=== PATIENT | female | born 1950 | race Caucasian/White ===

== ENCOUNTER 2018-12-04 03:14 | Observation (INO) ==
[2018-12-04] MEDS ORDERED: Naloxone 0.4 MG/ML INJ IVP PRN (05:45)
[2018-12-04] MEDS ORDERED: Ondansetron 4 MG/2 ML VIAL IVP PRN (05:45)
[2018-12-04 06:20] LABS: Basophils # 0.1 K/mcL (0.0-0.2); Basophils % 0.3 %; Eosinophils # 0.1 K/mcL (0.0-0.6); Eosinophils % 0.6 %; Hemoglobin 12.4 g/dL (11.5-15.4); Immature Granulocytes % 0.4 % (0-4); Lymphocytes # 3.2 K/mcL (0.6-4.6); Lymphocytes % 22.2 %; Mean Corpuscular HGB Conc 31.8 g/dL (31.6-35.5); Mean Corpuscular Hemoglobin 27.7 pg (28.0-33.3); Mean Corpuscular Volume 87.2 fL (83.0-100.0); Mean Platelet Volume 9.8 fL (9.4-12.4); Monocytes # 0.7 K/mcL (0.0-1.3); Monocytes % 4.6 %; Neutrophils # 10.4 K/mcL (1.6-8.9); Platelet Count 235 K/mcL (140-400); Red Blood Count 4.47 M/mcL (3.82-4.97); Red Cell Distribution Width 14.8 % (11.5-14.5); Segmented Neutrophils % 71.9 %; White Blood Count 14.5 K/mcL (4.3-11.1)
[2018-12-04 06:27] LABS: Prothrombin Time 11.1 Seconds (9.4-12.1)
[2018-12-04] MEDS: 0.9 % Sodium Chloride 1,000 ML IVC SCH ×2 (06:28→20:18)
[2018-12-04 06:30] LABS: Activated Partial Thrombo Time 26.3 Seconds (26.0-36.0)
[2018-12-04 06:39] LABS: Albumin 3.3 g/dL (3.5-5.7); Albumin/Globulin Ratio 1.2 (1.1-2.2); Bilirubin,Total 0.3 mg/dL (0.3-1.0); Calcium 8.5 mg/dL (8.6-10.3); Globulin 2.8 g/dL (2.4-3.5); Potassium 4.1 mEq/L (3.5-5.1); Total Protein 6.1 g/dL (6.4-8.9)
--- NOTE | 2018-12-04 07:35 | Internal Med History&Physical ---
Date of Encounter: 12/04/18 Time of Encounter: 07:35 Internal Medicine - H&P: HPI History of present illness: Ms. Steinberg is a 68 year old female with history of type 2 DM and tobacco abuse presents as a transfer from [facility] for left flank pain and obstructive uropathy. Patient has had left flank pain and went to ED. A CT abdomen/pelvis showed severe left hydronephrosis and hydroureter without any visible stone. There was also noted to be a 6-7 mm stone in the distal right ureter. She had urinalysis consistent with UTI. Her creatinine was 1.77 with no available baseline lab currently. She was administerd 1 L normal saline, 4 mg morphine, Zofran, and Cipro. She denies fevers, admits to chills. Pain rated 10/10, started last night and is more of a constant, sharp pain. Past Med Surg Social Fam HX - Past Medical History Medical history: diabetes Psychiatric history: anxiety, depression - Past Surgical History Surgical History: appendectomy, knee replacement - Social History Smoking Status: Current every day smoker Packs per day: 1/2 Smokeless Tobacco Status: No Alcohol use: none Drug use: none - Family History Father Living Status: Hx Family Cardiac Disorders: Yes Hx Family Cancer: Yes Brother Living Status: Hx Family Cardiac Disorders: Yes Internal Medicine - H&P: Meds Allergy/AdvReac Type Severity Reaction Status Date / Time meloxicam [From Mobic] Allergy See Verified 12/04/18 05:25 Comments tramadol Allergy Vomiting Verified 12/04/18 05:23 Penicillins AdvReac Difficulty Verified 12/04/18 05:22 Breathing All Systems PM: A 10-system review of systems was performed and is negative for pertinent findings except as documented above in the HPI. - Constitutional Constitutional: chills - EENT Eyes: no change in vision, no discharge, no pain, no photophobia Ears: no ear discharge, no ear pain, no tinnitus Nose, mouth and throat: no dysphagia, no nasal discharge, no neck pain, no sore throat - Cardiovascular Cardiovascular ROS IM: no chest pain, no diaphoresis, no dyspnea, no lightheadedness, no palpitations, no syncope - Respiratory Respiratory: no cough, no dyspnea, no wheezing, no excessive phlegm production - Gastrointestinal Gastrointestinal: no abdominal pain, no diarrhea, no hematemesis, no hematochezia, no melena, no nausea, no vomiting - Genitourinary Genitourinary: dysuria, flank pain, no change in urinary stream, no hematuria - Musculoskeletal Musculoskeletal ROS IM: no numbness, no tingling - Integumentary Integumentary IM: no rash, no unusual bruising - Neurological Neurological ROS: no confusion, no convulsions, no focal weakness, no numbness, no tingling, no tremor(s) - Hematologic/Lymphatic Hematologic/Lymphatic: no easy bruising - Constitutional Vitals: Temp Pulse Resp BP Pulse Ox 97.8 F 83 16 122/73 96 12/04/18 06:30 12/04/18 06:30 12/04/18 06:30 12/04/18 06:30 12/04/18 06:30 General appearance: Present: A&O X 3 Exam: . - Head Head exam: Present: atraumatic, normocephalic - Eye Eye exam: Present: PERRL, conjuntiva pink, sclera anicteric Pupils: Present: PERRL - Neck Neck exam general surgery: Present: supple, trachea midline. Absent: lymphadenopathy - Respiratory Respiratory exam: Present: CTAB. Absent: accessory muscle use, rales, rhonchi, wheezes - Cardiovascular Cardiovascular exam: Present: RRR, +S1, +S2. Absent: diastolic murmur, gallop, rubs, systolic murmur - GI/Abdominal GI/Abdominal exam: Present: normal bowel sounds, soft, tenderness, no peritoneal signs. Absent: distended Additional comments: left flank pain - Extremities Exam Extremities exam: Present: warm, radial pulses palpable and symmetrical. Absent: calf tenderness, cyanotic, pedal edema - Neurological Exam Neurological exam: Present: CN II-XII intact, oriented X3, no focal deficits. Absent: pronater drift, facial droop, speech deficit - Skin Skin exam: Present: dry, intact Internal Med - H&P Results - Labs CBC & Chem 7: 12/04/18 05:59 12/04/18 05:59 Labs: Short CBC 12/04/18 Range/Units 05:59 WBC 14.5 H (4.3-11.1) K/mcL Hgb 12.4 (11.5-15.4) g/dL Hct 39.0 (35.3-44.9) % Plt Count 235 (140-400) K/mcL Neutrophils # 10.4 H (1.6-8.9) K/mcL BMP 12/04/18 05:59 Sodium 137 Potassium 4.1 Chloride 104 Carbon Dioxide 24 BUN 20 Creatinine 1.52 H Glucose 218 H Calcium 8.5 L Liver Function 12/04/18 Range/Units 05:59 Total Bilirubin 0.3 (0.3-1.0) mg/dL AST 14 (13-39) Units/L ALT 15 (7-52) Units/L Alkaline Phosphatase 94 (34-104) Units/L Albumin 3.3 L (3.5-5.7) g/dL - Assessment and Plan (1) Hydronephrosis, left Current Visit: Yes Status: Acute Assessment and plan: CT at outside ED showed severe left hydronephrosis and hydroureter. Patient has findings of UTI, given a dose of Cipro and IV fluids. Currently no signs of sepsis. Allergic to penicillin with hives and swelling so will avoid cephalosporins. Renally dose Cipro. Received dose in ED, will schedule for l ater today as starting dose. Urology consulted, recommendations appreciated NPO at midnight Oxycodone, Zofran prn pain and nausea (2) Right kidney stone Current Visit: Yes Status: Acute Assessment and plan: Plan as above. (3) Type 2 diabetes mellitus Current Visit: Yes Status: Acute Assessment and plan: Diabetic diet ISS Qualifiers: Diabetes mellitus chcf insulin use: with terminal computer operator use Diabetes mellitus complication status: without complication Qualified Code(s): E11.9 - Type 2 diabetes mellitus without complications; Z79.4 - extermination inspector (current) use of insulin (4) Tobacco abuse Current Visit: Yes Status: Acute Assessment and plan: Nicotine patch (5) Acute kidney injury Current Visit: Yes Status: Acute Assessment and plan: Unsure of patient's baseline renal function. Likely related to obstructive uropathy. Urology consulted, continue IV fluid hydration, recheck BMP in AM. (6) UTI (urinary tract infection) Current Visit: Yes Status: Acute Assessment and plan: As above, await culture. Qualifiers: Urinary tract infection type: acute cystitis Hematuria presence: with hematuria Qualified Code(s): N30.01 - Acute cystitis with hematuria (7) COPD (chronic obstructive pulmonary disease) Current Visit: Yes Status: Acute Assessment and plan: No acute issues, place Duo Neb prn dyspnea. Qualifiers: COPD type: unspecified COPD Qualified Code(s): J44.9 - Chronic obstructive pulmonary disease, unspecified (8) DVT prophylaxis Current Visit: Yes Status: Acute Assessment and plan: SQ heparin - Time Spent With Patient Total time spent is greater than 50% in coordination of care (as documented) at patient's floor/unit and/or counseling patient:
[2018-12-04] MEDS ORDERED: *HR* Dextrose 50 % in Water (Syg) 50 ML SYRINGE IVP PRN (07:43)
[2018-12-04] MEDS ORDERED: Dextrose Gel 15 GM/37.5 ML TUBE PO PRN ×2 (07:43)
[2018-12-04] MEDS ORDERED: D5% in Water 1,000 ML IVC PRN (07:43)
[2018-12-04] MEDS ORDERED: Ipratropium/Albuterol Neb 3 ML IH PRN (08:01)
[2018-12-04] MEDS ORDERED: Nicotine 14 MG PATCH.TD24 TD PRN (08:01)
[2018-12-04] MEDS: *HR* Heparin 5,000 UNIT/ML VIAL SQ SCH ×2 (09:06→17:08)
--- NOTE | 2018-12-04 09:22 | Urology - Consult Note ---
<Kaur Bellamy N - Last Filed: 12/04/18 09:19> Date of Encounter: 12/04/18 Time of Encounter: 08:30 - Assessment and Plan (1) Acute kidney injury Current Visit: Yes Status: Acute Assessment and plan: Patient is a 68 year female who presents with acute kidney injury. Unfortunately, there is no baseline renal function for comparison. Patient has a history of acute renal failure secondary to NSAIDs. We will reevaluate renal function in the morning and possibly proceed with ureteral stent placement if indicated. (2) Hydronephrosis, left Current Visit: Yes Status: Acute Assessment and plan: Patient is a 68-year-old female who presents with left hydronephrosis. Reviewed CT images, and we do not feel patient has a right ureteral stone. Patient likely has an ascending urinary tract infection. We discussed the option of proceeding with left ureteral stent placement given the hydronephrosis, left flank pain and infection. Patient has elected to continue with conservative treatment with IV fluids and antibiotics. We discussed that if patient's renal function acutely worsens or fails to improve, we may proceed with ureteral stent placement tomorrow. (3) UTI (urinary tract infection) Current Visit: Yes Status: Acute Assessment and plan: Patient is a 68-year-old female who presents with a urinary tract infection. White blood cell count is 14.5, and GFR is 34. There has been no urine culture collected, and patient is receiving IV Cipro. I will call [facility] lab tomorrow to inquire about urine culture. Qualifiers: Urinary tract infection type: acute cystitis Hematuria presence: with hematuria Qualified Code(s): N30.01 - Acute cystitis with hematuria Urology CN:HPI Consult date: 12/04/18 Reason for consult Urology: Hydronephrosis (UTI; left pyelonephritis) Requesting physician: Victorina Zamorano History of present illness: Patient is a 68-year-old female who presents with left pyelonephritis, hydronephrosis and left flank pain. Patient was initially evaluated at [facility] where she underwent a CT of the abdomen and pelvis revealing moderate to severe left hydronephrosis, moderate right hydronephrosis and obstructive uropathy. Patient was subsequently transferred to [facility] for urologic intervention. Patient reports no prior history of renal stones, but she does admit to a family history of renal stones through both of her siblings. Patient states left flank pain has been ongoing for one day, and it is accompanied with nausea, suprapubic pain, gross hematuria and dysuria. 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 Patient denies any history of recurrent urinary tract infection or recent hospitalization for urinary tract infection. Currently, patient is lying in bed in no apparent distress, but she admits to continued left flank pain. She denies any fever or chills. Past Med Surg Social Fam HX - Past Medical History Medical history: diabetes Psychiatric history: anxiety, depression - Past Surgical History Surgical History: appendectomy, knee replacement - Social History Smoking Status: Current every day smoker Packs per day: 1/2 Smokeless Tobacco Status: No Alcohol use: none Drug use: none - Family History Father Living Status: Hx Family Cardiac Disorders: Yes Hx Family Cancer: Yes Brother Living Status: Hx Family Cardiac Disorders: Yes Medications and Allergies Allergy/AdvReac Type Severity Reaction Status Date / Time meloxicam [From Mobic] Allergy See Verified 12/04/18 05:25 Comments tramadol Allergy Vomiting Verified 12/04/18 05:23 Penicillins AdvReac Difficulty Verified 12/04/18 05:22 Breathing Review of Systems - Constitutional no chills, no fatigue, no fever(s) - EENT Nose, mouth and throat: no dizziness, no headache(s) - Cardiovascular no chest pain, no diaphoresis, no dyspnea - Respiratory no cough, no dyspnea - Gastrointestinal abdominal pain, nausea, no vomiting - Genitourinary Genitourinary: dysuria, flank pain, hematuria, urinary frequency, urinary hesit kavon, urinary urgency, no difficulty urinating, no urinary incontinence - Musculoskeletal back pain, no muscle weakness - Integumentary no erythema - Neurological no confusion, no syncope - Psychiatric no anxiety, no confusion - Hematologic/Lymphatic no easy bleeding, no easy bruising - Allergic/Immunologic no throat swelling, no wheezing Exam Initial Vital Signs Temp Pulse Resp BP Pulse Ox 98.3 F 89 16 145/82 94 12/04/18 05:06 12/04/18 05:06 12/04/18 05:06 12/04/18 05:06 12/04/18 05:06 - General physical appearance Present: no distress, no pain - Eyes Present: PERRL, normal ocular movement - ENT Present: normal nares, no hearing loss, no congestion - Neck Present: no masses, trachea midline, no lymphadenopathy - Respiratory Present: normal respiratory effort - Cardiovascular Cardiovascular exam IM: RRR - Abdomen Abdomen: Present: soft, non tender. Absent: distended - Genitourinary Present: other (left cvat) - Integumentary Present: no rash, no abnormal pigmentation - Neurologic Present: normal coordination - Musculoskeletal Present: other (normal posture ) Urology Results - Labs 12/04/18 05:59 12/04/18 05:59 Abnormal lab results WBC 14.5 K/mcL (4.3-11.1) H 12/04/18 05:59 MCH 27.7 pg (28.0-33.3) L 12/04/18 05:59 RDW 14.8 % (11.5-14.5) H 12/04/18 05:59 Neutrophils # 10.4 K/mcL (1.6-8.9) H 12/04/18 05:59 Creatinine 1.52 mg/dL (0.60-1.20) H 12/04/18 05:59 Est GFR ( Amer) 41 (> 60) L 12/04/18 05:59 Est GFR (Non-Af Amer) 34 (> 60) L 12/04/18 05:59 Glucose 218 mg/dL (70-105) H 12/04/18 05:59 Calcium 8.5 mg/dL (8.6-10.3) L 12/04/18 05:59 Serum Total Protein 6.1 g/dL (6.4-8.9) L 12/04/18 05:59 Albumin 3.3 g/dL (3.5-5.7) L 12/04/18 05:59 Diabetes panel 12/04/18 Range/Units 05:59 Sodium 137 (136-145) mEq/L Potassium 4.1 (3.5-5.1) mEq/L Chloride 104 (98-107) mEq/L Carbon Dioxide 24 (23-29) mEq/L BUN 20 (8-23) mg/dL Creatinine 1.52 H (0.60-1.20) mg/dL Glucose 218 H (70-105) mg/dL Calcium 8.5 L (8.6-10.3) mg/dL AST 14 (13-39) Units/L ALT 15 (7-52) Units/L Alkaline Phosphatase 94 (34-104) Units/L Albumin 3.3 L (3.5-5.7) g/dL Calcium panel 12/04/18 Range/Units 05:59 Calcium 8.5 L (8.6-10.3) mg/dL Albumin 3.3 L (3.5-5.7) g/dL Pituitary panel 12/04/18 Range/Units 05:59 Sodium 137 (136-145) mEq/L Potassium 4.1 (3.5-5.1) mEq/L Chloride 104 (98-107) mEq/L Carbon Dioxide 24 (23-29) mEq/L BUN 20 (8-23) mg/dL Creatinine 1.52 H (0.60-1.20) mg/dL Glucose 218 H (70-105) mg/dL Calcium 8.5 L (8.6-10.3) mg/dL Adrenal panel 12/04/18 Range/Units 05:59 Sodium 137 (136-145) mEq/L Potassium 4.1 (3.5-5.1) mEq/L Chloride 104 (98-107) mEq/L Carbon Dioxide 24 (23-29) mEq/L BUN 20 (8-23) mg/dL Creatinine 1.52 H (0.60-1.20) mg/dL Glucose 218 H (70-105) mg/dL Calcium 8.5 L (8.6-10.3) mg/dL Total Bilirubin 0.3 (0.3-1.0) mg/dL AST 14 (13-39) Units/L ALT 15 (7-52) Units/L Alkaline Phosphatase 94 (34-104) Units/L Albumin 3.3 L (3.5-5.7) g/dL All other labs normal. - Imaging CT scan - abdomen: report reviewed, image reviewed CT scan - pelvis: report reviewed, image reviewed Consult Discharge Plan - Plan Referrals: Bebe Argueta, FILM PRODUCER [Primary Care Provider] - <Giovany Jones - Last Filed: 12/04/18 14:54> Date of Encounter: 12/04/18 Urology CN:HPI History of present illness: Patient was seen and examined independently. I agree with the plan as written by kaur Bellamy. At this time, patient does not have a right ureteral stone. This was confirmed on personal review of the CT scan. She has left moderate to severe hydronephrosis on her left side which is consistent with infection and pyelonephritis. At this time I offered the patient cystoscopy and left ureteral stent placement today but she declined. We will plan on close monitoring. Patient will likely have improvement with IV antibiotics. We will follow along closely. If patient's infection fails to improve or her serum creatinine fails to improve will consider left ureteral stent placement Exam Initial Vital Signs Temp Pulse Resp BP Pulse Ox 98.3 F 89 16 145/82 94 12/04/18 05:06 12/04/18 05:06 12/04/18 05:06 12/04/18 05:06 12/04/18 05:06 Urology Results - Labs 12/04/18 05:59 12/04/18 05:59 Abnormal lab results WBC 14.5 K/mcL (4.3-11.1) H 12/04/18 05:59 MCH 27.7 pg (28.0-33.3) L 12/04/18 05:59 RDW 14.8 % (11.5-14.5) H 12/04/18 05:59 Neutrophils # 10.4 K/mcL (1.6-8.9) H 12/04/18 05:59 Creatinine 1.52 mg/dL (0.60-1.20) H 12/04/18 05:59 Est GFR ( Amer) 41 (> 60) L 12/04/18 05:59 Est GFR (Non-Af Amer) 34 (> 60) L 12/04/18 05:59 Glucose 218 mg/dL (70-105) H 12/04/18 05:59 Calcium 8.5 mg/dL (8.6-10.3) L 12/04/18 05:59 Serum Total Protein 6.1 g/dL (6.4-8.9) L 12/04/18 05:59 Albumin 3.3 g/dL (3.5-5.7) L 12/04/18 05:59 Diabetes panel 12/04/18 Range/Units 05:59 Sodium 137 (136-145) mEq/L Potassium 4.1 (3.5-5.1) mEq/L Chloride 104 (98-107) mEq/L Carbon Dioxide 24 (23-29) mEq/L BUN 20 (8-23) mg/dL Creatinine 1.52 H (0.60-1.20) mg/dL Glucose 218 H (70-105) mg/dL Calcium 8.5 L (8.6-10.3) mg/dL AST 14 (13-39) Units/L ALT 15 (7-52) Units/L Alkaline Phosphatase 94 (34-104) Units/L Albumin 3.3 L (3.5-5.7) g/dL Calcium panel 12/04/18 Range/Units 05:59 Calcium 8.5 L (8.6-10.3) mg/dL Albumin 3.3 L (3.5-5.7) g/dL Pituitary panel 12/04/18 Range/Units 05:59 Sodium 137 (136-145) mEq/L Potassium 4.1 (3.5-5.1) mEq/L Chloride 104 (98-107) mEq/L Carbon Dioxide 24 (23-29) mEq/L BUN 20 (8-23) mg/dL Creatinine 1.52 H (0.60-1.20) mg/dL Glucose 218 H (70-105) mg/dL Calcium 8.5 L (8.6-10.3) mg/dL Adrenal panel 12/04/18 Range/Units 05:59 Sodium 137 (136-145) mEq/L Potassium 4.1 (3.5-5.1) mEq/L Chloride 104 (98-107) mEq/L Carbon Dioxide 24 (23-29) mEq/L BUN 20 (8-23) mg/dL Creatinine 1.52 H (0.60-1.20) mg/dL Glucose 218 H (70-105) mg/dL Calcium 8.5 L (8.6-10.3) mg/dL Total Bilirubin 0.3 (0.3-1.0) mg/dL AST 14 (13-39) Units/L ALT 15 (7-52) Units/L Alkaline Phosphatase 94 (34-104) Units/L Albumin 3.3 L (3.5-5.7) g/dL All other labs normal.
[2018-12-04] MEDS: Insulin LISPRO 300 UNITS/3 ML VIAL SQ SCH ×3 (12:37→20:08)
[2018-12-04 19:23] LABS: Bilirubin,Urine Negative (Negative); Blood,Urine Moderate (Negative); Clarity,Urine Clear (Clear); Color,Urine Yellow (Yellow); Glucose,Urine (UA) Normal (Normal); Ketones,Urine Negative (Negative); Leukocyte Esterase,Urine Large (Negative); Nitrite,Urine Negative (Negative); PH,Urine 6.5 pH Units (5.0-8.0); Protein,Urine Trace mg/dL (Neg-Trace); Specific Gravity,Urine < 1.005 (1.010-1.025); Urobilinogen,Urine Normal (Normal)
[2018-12-04 19:25] LABS: Bacteria,Urine Few per hpf (None-Few); Hyaline Casts,Urine None Seen per lpf (None-Few); RBC,Urine 0-3 per hpf (0-3); Squamous Epithelial Cell,Urine Moderate per lpf (None-Few); WBC,Urine 50-100 per hpf (0-3)
[2018-12-05] MEDS: *HR* Heparin 5,000 UNIT/ML VIAL SQ SCH ×2 (05:42→17:39)
[2018-12-05] MEDS: Insulin LISPRO 300 UNITS/3 ML VIAL SQ SCH ×4 (07:18→21:01)
[2018-12-05 07:24] LABS: Calcium 8.6 mg/dL (8.6-10.3); Potassium 4.2 mEq/L (3.5-5.1)
--- NOTE | 2018-12-05 08:57 | Urology Progress Note ---
<Kaur Bellamy N - Last Filed: 12/05/18 08:54> Date of Encounter: 12/05/18 Time of Encounter: 08:10 - Assessment and Plan (1) Acute kidney injury Current Visit: Yes Status: Acute Assessment and plan: Patient is a 68-year-old female who presents with acute kidney injury. Serum creatinine is elevated from 1.52-1.91, however, patient appears much improved clinically. (2) Hydronephrosis, left Current Visit: Yes Status: Acute Assessment and plan: Patient is a 68-year-old female who presents with moderate to severe left-sided hydronephrosis and pyelonephritis. Vital signs are currently stable and afebrile. Renal function is slightly worsened, the patient appears much improved clinically. At this time, patient does not wish to proceed with ureteral stent placement, as she feels much improved. Urology will sign off, we are always available as needed. Patient will require outpatient follow-up with renal ultrasound within 2 weeks of discharge. (3) UTI (urinary tract infection) Current Visit: Yes Status: Acute Assessment and plan: Patient is a 68-year-old female who presents with an ascending urinary tract infection. Vital signs are currently stable and afebrile. Patient is receiving IV Cipro, and final culture is pending. Patient will require an additional 10- 14 days of oral culture sensitive antibiotics upon discharge. Qualifiers: Urinary tract infection type: acute cystitis Hematuria presence: with hematuria Qualified Code(s): N30.01 - Acute cystitis with hematuria Progress Note Subjective: no new complaints, feels better Narrative: Patient seen and examined lying in bed in no apparent distress. Patient reports feeling much better. Patient states she is voiding well without difficulty, and her appetite has returned. Patient denies any fever, chills, flank pain, dysuria or gross hematuria. Objective Initial Vital Signs Temp Pulse Resp BP Pulse Ox 98.3 F 89 16 145/82 94 12/04/18 05:06 12/04/18 05:06 12/04/18 05:06 12/04/18 05:06 12/04/18 05:06 - General physical appearance Present: no distress, no pain - Respiratory Present: normal expansion, normal respiratory effort - Abdomen Present: soft, non tender. Absent: distended - Genitourinary Present: other (No CVAT) - Integumentary Present: no rash, no abnormal pigmentation - Musculoskeletal Present: normal posture - Psychiatric Present: oriented to time, oriented to person, oriented to place, speech is normal, memory intact - Labs 12/04/18 05:59 12/05/18 05:30 Diabetes panel 12/05/18 Range/Units 05:30 Sodium 138 (136-145) mEq/L Potassium 4.2 (3.5-5.1) mEq/L Chloride 108 H (98-107) mEq/L Carbon Dioxide 24 (23-29) mEq/L BUN 19 (8-23) mg/dL Creatinine 1.91 H (0.60-1.20) mg/dL Glucose 170 H (70-105) mg/dL Calcium 8.6 (8.6-10.3) mg/dL Calcium panel 12/05/18 Range/Units 05:30 Calcium 8.6 (8.6-10.3) mg/dL Pituitary panel 12/05/18 Range/Units 05:30 Sodium 138 (136-145) mEq/L Potassium 4.2 (3.5-5.1) mEq/L Chloride 108 H (98-107) mEq/L Carbon Dioxide 24 (23-29) mEq/L BUN 19 (8-23) mg/dL Creatinine 1.91 H (0.60-1.20) mg/dL Glucose 170 H (70-105) mg/dL Calcium 8.6 (8.6-10.3) mg/dL Adrenal panel 12/05/18 Range/Units 05:30 Sodium 138 (136-145) mEq/L Potassium 4.2 (3.5-5.1) mEq/L Chloride 108 H (98-107) mEq/L Carbon Dioxide 24 (23-29) mEq/L BUN 19 (8-23) mg/dL Creatinine 1.91 H (0.60-1.20) mg/dL Glucose 170 H (70-105) mg/dL Calcium 8.6 (8.6-10.3) mg/dL Consult Discharge Plan - Plan Referrals: Giovany Jones MD [Partnered Physician] - Bebe Argueta CNP [Primary Care Provider] - <Giovany Jones - Last Filed: 12/05/18 11:23> Date of Encounter: 12/05/18 Progress Note Narrative: Patient was seen and examined independently. Agree with the plan as written by Kaur Bellamy at this point patient okay to discharge home from urology standpoint as patient's creatinine has improved. She is feeling much better. Patient should follow up with us in 2-3 weeks for renal ultrasound. Objective Initial Vital Signs Temp Pulse Resp BP Pulse Ox 98.3 F 89 16 145/82 94 12/04/18 05:06 12/04/18 05:06 12/04/18 05:06 12/04/18 05:06 12/04/18 05:06 - Labs 12/04/18 05:59 12/05/18 05:30 Diabetes panel 12/05/18 Range/Units 05:30 Sodium 138 (136-145) mEq/L Potassium 4.2 (3.5-5.1) mEq/L Chloride 108 H (98-107) mEq/L Carbon Dioxide 24 (23-29) mEq/L BUN 19 (8-23) mg/dL Creatinine 1.91 H (0.60-1.20) mg/dL Glucose 170 H (70-105) mg/dL Calcium 8.6 (8.6-10.3) mg/dL Calcium panel 12/05/18 Range/Units 05:30 Calcium 8.6 (8.6-10.3) mg/dL Pituitary panel 12/05/18 Range/Units 05:30 Sodium 138 (136-145) mEq/L Potassium 4.2 (3.5-5.1) mEq/L Chloride 108 H (98-107) mEq/L Carbon Dioxide 24 (23-29) mEq/L BUN 19 (8-23) mg/dL Creatinine 1.91 H (0.60-1.20) mg/dL Glucose 170 H (70-105) mg/dL Calcium 8.6 (8.6-10.3) mg/dL Adrenal panel 12/05/18 Range/Units 05:30 Sodium 138 (136-145) mEq/L Potassium 4.2 (3.5-5.1) mEq/L Chloride 108 H (98-107) mEq/L Carbon Dioxide 24 (23-29) mEq/L BUN 19 (8-23) mg/dL Creatinine 1.91 H (0.60-1.20) mg/dL Glucose 170 H (70-105) mg/dL Calcium 8.6 (8.6-10.3) mg/dL
--- NOTE | 2018-12-05 16:12 | Internal Med Progress Note ---
Hospitalist Progress Note - Encounter Date of Encounter: 12/05/18 Time of Encounter: 09:00 - Subjective Interval History: No acute events overnight. Patient has no new complaints. She denies flank pain, fever, dysuria and chills. - Exam Vitals: Temp Pulse Resp BP Pulse Ox 36.8 C 74 15 111/70 93 12/05/18 14:31 12/05/18 14:31 12/05/18 14:31 12/05/18 14:31 12/05/18 14:31 Exam: GENERAL: Not in distress. Alert and Oriented HEENT: EOMI, PERRLA MOUTH: Good oral hygiene NECK:No JVD, No lymph nodes. CHEST AND LUNGS: Normal breath sounds, no wheezes or crackles HEART: S1 and S2 normal, no murmurs ABDOMEN: Soft, nontender, no organomegaly SKIN: Normal color, no rahses, no lesions EXTREMITIES: No deformity, no edema, no tenderness, no joint swelling or clubbing NEUROLOGICAL: Normal cognition, normal motor and sensory exam. . - Assessment and Plan (1) Hydronephrosis, left Current Visit: Yes Status: Acute Assessment and Plan: Urology on board. Do not intend to place a ureteral stent at the moment Recommend outpatient follow-up with renal US within 2 weeks of DC For possible DC tomorrow. (2) Type 2 diabetes mellitus Current Visit: Yes Status: Acute Assessment and Plan: Diabetic diet ISS (3) Tobacco abuse Current Visit: Yes Status: Acute Assessment and Plan: Nicotine patch Patient counseled on smoking cessation (4) DVT prophylaxis Current Visit: Yes Status: Acute Assessment and Plan: SQ heparin (5) Acute kidney injury Current Visit: Yes Status: Acute Assessment and Plan: Creatinine at 1.9, a trend upwards from 1.5 yesterday. Will continue to hydrate and monitor. (6) UTI (urinary tract infection) Current Visit: Yes Status: Acute Assessment and Plan: Awaiting culture results. Patient on IV Cipro. (7) COPD (chronic obstructive pulmonary disease) Current Visit: Yes Status: Acute Assessment and Plan: No acute issues, place Duo Neb prn dyspnea. DVT Prophylaxis: SQ Heparin - Time Spent with Patient Total time spent is greater than 50% in coordination of care (as documented) at patient's floor/unit and/or counseling patient: Internal Medicine: Result - Labs CBC & Chem 7: 12/04/18 05:59 12/05/18 05:30 Labs: BMP 12/05/18 05:30 Sodium 138 Potassium 4.2 Chloride 108 H Carbon Dioxide 24 BUN 19 Creatinine 1.91 H Glucose 170 H Calcium 8.6 Urine 12/04/18 Range/Units 19:03 Urine Color Yellow (Yellow) Urine Clarity Clear (Clear) Urine pH 6.5 (5.0-8.0) pH Units Ur Specific [place] < 1.005 L (1.010-1.025) Urine Protein Trace (Neg-Trace) mg/dL Urine Glucose (UA) Normal (Normal) mg/dL - ABG Interpretation ABG results: PT/INR, D-dimer PT 11.1 Seconds (9.4-12.1) 12/04/18 05:59 Consult Discharge Plan - Plan Referrals: Giovany Jones MD [Partnered Physician] - Bebe Argueta CNP [Primary Care Provider] - (2) Type 2 diabetes mellitus Qualifiers: 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
[2018-12-06 04:44] LABS: Basophils % 0.5 %; Eosinophils # 0.2 K/mcL (0.0-0.6); Eosinophils % 2.2 %; Hematocrit 34.7 % (35.3-44.9); Immature Granulocytes % 0.2 % (0-4); Lymphocytes # 3.8 K/mcL (0.6-4.6); Mean Corpuscular HGB Conc 31.7 g/dL (31.6-35.5); Mean Corpuscular Hemoglobin 27.6 pg (28.0-33.3); Mean Platelet Volume 10.1 fL (9.4-12.4); Monocytes # 0.6 K/mcL (0.0-1.3); Neutrophils # 4.2 K/mcL (1.6-8.9); Platelet Count 225 K/mcL (140-400); Red Blood Count 3.99 M/mcL (3.82-4.97); Red Cell Distribution Width 14.6 % (11.5-14.5); Segmented Neutrophils % 47.1 %; White Blood Count 8.8 K/mcL (4.3-11.1)
[2018-12-06 05:05] LABS: Potassium 3.8 mEq/L (3.5-5.1)
[2018-12-06] MEDS: *HR* Heparin 5,000 UNIT/ML VIAL SQ SCH (05:16)
[2018-12-06] MEDS: Insulin LISPRO 300 UNITS/3 ML VIAL SQ SCH (07:15)
--- NOTE | 2018-12-06 09:06 | Discharge Summary ---
- NOTES TO OUTPATIENT PROVIDER Notes to Outpatient Provider: Patient to do a repeat renal ultrasoud and follow up with uroloygy within 2 weeks. Orders not resulted at time of discharge: Pending orders 12/04/18 19:03 Culture,Urine [RM] Stat Date of Encounter: 12/06/18 Time of Encounter: 09:04 - Discharge Diagnosis (1) Hydronephrosis, left Priority: Primary Status: Acute (2) Type 2 diabetes mellitus Priority: Secondary Status: Acute Qualifiers: Diabetes mellitus nursing home insulin use: with nursing home use Diabetes mellitus complication status: without complication Qualified Code(s): E11.9 - Type 2 diabetes mellitus without complications; Z79.4 - snf (current) use of insulin (3) Tobacco abuse Priority: Secondary Status: Acute (4) DVT prophylaxis Priority: Secondary Status: Acute (5) Acute kidney injury Priority: Secondary Status: Acute (6) UTI (urinary tract infection) Priority: Secondary Status: Acute Qualifiers: Urinary tract infection type: acute cystitis Hematuria presence: with hematuria Qualified Code(s): N30.01 - Acute cystitis with hematuria (7) COPD (chronic obstructive pulmonary disease) Priority: Secondary Status: Acute Qualifiers: COPD type: unspecified COPD Qualified Code(s): J44.9 - Chronic obstructive pulmonary disease, unspecified Hospital course: Ms. Steinberg is a 68 year old female with a PMx of DM2 and Smoking who presented with left flank pain. USG revealed left hyfronephrosis. Urology evaluated and the decision was to not place a stent at the moment. Patient will be discharged to follow up with urology in 2 weeks with a follow up USG. Discharge discussed with: patient, nurse (40) - Time Spent with Patient Total time spent providing and/or coordinating discharge services: - Discharge Medications Prescriptions: New Ciprofloxacin [Cipro] 500 mg PO BID 7 Days #14 tablet Continued Simvastatin [Zocor] 20 mg PO QPM Gabapentin [Neurontin] 300 mg PO BID Duloxetine HCl [Cymbalta] 60 mg PO QAM Liraglutide [Victoza 2-Lino] 0.6 mg SQ HS Furosemide [Lasix] 40 mg PO Q48H PRN PRN Reason: SWELLING Potassium Chloride [K-Tab ER] 10 meq PO Q48H PRN PRN Reason: WHEN LASIX IS TAKEN Insulin DETEMIR [Levemir Flextouch] 35 unit SQ QAM Cholecalciferol (D-3) [Vitamin D] 1,000 unit PO DAILY Mv,Ca,Min/Folic Acid/Vit K1 [One-A-Day Women's 50 Plus Tab] 1 tab PO DAILY Aspirin [Adult Aspirin Regimen] 81 mg PO HS Home Medications: Aspirin [Adult Aspirin Regimen] 81 mg PO HS 12/04/18 [History] Cholecalciferol (D-3) [Vitamin D] 1,000 unit PO DAILY 12/04/18 [History] Duloxetine HCl [Cymbalta] 60 mg PO QAM 12/04/18 [History] Furosemide [Lasix] 40 mg PO Q48H PRN 12/04/18 [History] Gabapentin [Neurontin] 300 mg PO BID 12/04/18 [History] Insulin DETEMIR [Levemir Flextouch] 35 unit SQ QAM 12/04/18 [History] Liraglutide [Victoza 2-Lino] 0.6 mg SQ HS 12/04/18 [History] Mv,Ca,Min/Folic Acid/Vit K1 [One-A-Day Women's 50 Plus Tab] 1 tab PO DAILY 12/04/18 [History] Potassium Chloride [K-Tab ER] 10 meq PO Q48H PRN 12/04/18 [History] Simvastatin [Zocor] 20 mg PO QPM 12/04/18 [History] Ciprofloxacin [Cipro] 500 mg PO BID 7 Days #14 tablet 12/06/18 [Rx] Allergies/Adverse Reactions: Allergy/AdvReac Type Severity Reaction Status Date / Time meloxicam [From Mobic] Allergy See Verified 12/04/18 19:10 Comments tramadol Allergy See Verified 12/04/18 19:10 Comments Penicillins AdvReac See Verified 12/04/18 19:10 Comments Date of admission: 12/04/18 05:03 Primary care physician: Bebe Argueta CNP Consults: 12/04/18 05:47 Consult to Urology [CONS] Routine Consulting Provider: [facility] [place] Reason for Consult: Obstructing nephrolithiasis Call Completed: No - Constitutional Vitals: Temp Pulse Resp BP Pulse Ox 36.8 C 78 17 138/74 94 12/06/18 07:02 12/06/18 07:02 12/06/18 07:02 12/06/18 07:02 12/06/18 07:02 General appearance: Present: A&O X 3 Exam: GENERAL: Not in distress. Alert and Oriented HEENT: EOMI, PERRLA MOUTH: Good oral hygiene NECK:No JVD, No lymph nodes. CHEST AND LUNGS: Normal breath sounds, no wheezes or crackles HEART: S1 and S2 normal, no murmurs ABDOMEN: Soft, nontender, no organomegaly SKIN: Normal color, no rashes, no lesions EXTREMITIES: No deformity, no edema, no tenderness, no joint swelling or clubbing NEUROLOGICAL: Normal cognition, normal motor and sensory exam. . - Patient Status Disposition: Home, Self-Care Condition: Good Functional capacity at discharge: independent ambulation Overall status at discharge: patient is progressing back to baseline - Ambulatory Orders Ambulatory Orders: US abdomen limited [US] Time Frame: 1 Week, Facility: [facility], Location: Radiology - Discharge Instructions Follow Up With: Giovany Jones MD [Partnered Physician] - Bebe Argueta CNP [Primary Care Provider] - - Diet and Activity Activity: increase activity as tolerated Diet: advance to your usual diet
[2018-12-06 10:42] VITALS: BP 117/72
== END 2018-12-06 12:15 | disposition home or self-care (01) ==
LOC: 3ANU → SUATTDRO 05:03
PROVIDERS: ADMIT Internal Medicine; ATTEND Internal Medicine